=== PATIENT | male | born 1990 | race Caucasian/White ===

== ENCOUNTER 2022-06-12 20:17 | Emergency (ER) | payer BC ==
[~2022-06-12] VITALS: Ht 177.8 cm; Wt 136.4 kg
[2022-06-12 20:20] VITALS: TEMP 97.6
[2022-06-12 21:15] LABS: BASO # 0.1 K/mm3 (0.0-0.2); BASO % 0.6 % (0.0-2.0); EOS # 0.3 K/mm3 (0.0-0.7); EOS % 3.4 % (0.0-4.0); GRAN # 4.8 K/mm3 (1.4-6.5); GRAN % 56.8 % (42.2-75.2); HEMOGLOBIN 14.5 g/dl (13.5-18.0); LYMPH # 2.6 K/mm3 (1.2-3.4); MEAN CELL VOLUME 89 fl (80.0-100.0); MEAN CORPUSCULAR HEMOGLOBIN 29 pg (27-31); MEAN CORPUSCULAR HGB CONC 33 g/dl (33.0-37.0); MEAN PLATELET VOLUME 10.8 fl (7.4-10.4); MONO # 0.7 K/mm3 (0.1-0.6); PLATELET COUNT 298 K/mm3 (130-400); RED BLOOD COUNT 4.94 M/mm3 (4.20-5.60); REDCELL DISTRIBUTION WIDTH-CV 12.6 % (11.5-14.5)
[2022-06-12 21:29] LABS: ALANINE AMINOTRANSFERASE 40 U/L (0-55); ALBUMIN 4.2 gm/dL (3.5-5.0); ALKALINE PHOSPHATASE 92 U/L (40-150); ANION GAP 10 mmol/L (7-16); AST,SGOT 21 U/L (5-34); BILIRUBIN,TOTAL 0.2 mg/dL (0.2-1.2); BLOOD UREA NITROGEN 18 mg/dL (9-21); CALCIUM 9.6 mg/dL (8.4-10.2); CARBON DIOXIDE 24 mmol/L (22-29); CHLORIDE 106 mmol/L (98-107); CREATININE, serum 1.11 mg/dL (0.72-1.25); GLUCOSE 107 mg/dL (70-99); LIPASE 39 U/L (8-78); POTASSIUM 4.1 mmol/L (3.5-4.5); SODIUM 140 mmol/L (136-145); TOTAL PROTEIN 7.9 gm/dL (6.2-8.1)
[2022-06-12 21:35] LABS: TROPONIN-I < 0.010 ng/mL (0.00-0.033)
[2022-06-12] MEDS ORDERED: PROTONIX 40MG T40 MG PO (22:18)
[2022-06-12 22:33] VITALS: BP 135/83; PULSE 74
== END 2022-06-12 22:34 | disposition home or self-care (01) ==
LOC: COL.ER 20:17
PROVIDERS: Physician Assistant
DX: R07.2 Precordial pain (principal)
CPT/HCPCS: J2270; J2405

== ENCOUNTER 2023-03-31 12:07 | Day surgery (SDC) | payer BC, OTHER ==
[~2023-03-31] VITALS: Ht 180.3 cm; Wt 132.4 kg
[2023-03-31] VITALS (10 sets, daily range): BP systolic 111–131; BP diastolic 65–91; PULSE 57–93; TEMP 97.6–98.3
[~2023-03-31 12:07] MED LIST: LR 1,000 ML IV SCH; PROTONIX 40MG T40 MG PO
[2023-03-31] MEDS ORDERED: Lidocaine PF 2% (20 MG/ML) 5 ML VIAL ONE (14:38)
[2023-03-31] MEDS ORDERED: Glycopyrrolate 0.2 MG/ML 1 ML VIAL ONE (14:38)
--- NOTE | 2023-03-31 15:25 | NUR ---
The patient ambulated back to [place] [facility] and appeared to tolerate the activity well. The patient appears alert and oriented and denies any immediate pain or nausea. Vital signs obtained. Consent signed. 20G IV started on 4th attempt in his left upper forearm, LR infusing without difficulty. Assessment completed. Home medications reconcilled. at bedside. Call light is within reach. The patient did report feeling lightheaded with the IV starts and was given 2 cool washcloths to help with this. The patient's is at his bedside at this time. The patient denied wanting a warm blanket at this time. The patient denies any further needs at this time.
[2023-03-31] MEDS ORDERED: Iohexol 350 - 100 ML VIAL BILE DUCT ONE (15:53)
--- NOTE | 2023-03-31 16:20 | NUR ---
pt admitted to room from endoscopy, at bedside. pt a&ox3. reports pain in left shoulder from previous injury. med rec and admission assessment complete. pt oriented to room. no needs at this time. call light in reach.
--- NOTE | 2023-03-31 20:07 | NUR ---
report received from clarence mehta. pt resting in bed with at bedside. pt denies pain. call light in reach. all needs met at this time.
--- NOTE | 2023-03-31 22:22 | NUR ---
shift assessment complete, see documentation. pt resting in bed watching tv. pt denies pain. call light in reach. all needs met at this time.
[2023-04-01] VITALS (15 sets, daily range): BP systolic 110–131; BP diastolic 58–79; PULSE 55–83; TEMP 98.1–98.3
[2023-04-01] MEDS ORDERED: LR 1,000 ML IV SCH (05:00)
--- NOTE | 2023-04-01 05:53 | NUR ---
pt sleeping well through the night. pt vss. pt denies pain. call light in reach. all needs met at this time.
--- NOTE | 2023-04-01 07:30 | NUR ---
pt a&ox3 sitting on the side of bed. procedure and anesthesia consents are signed. pt npo for surgery this morning. pt reports pain tolerable this morning. no nausea or vomiting. no needs at this time. call light in reach.
[2023-04-01] MEDS ORDERED: Succinylcholine PF 100 MG/5 ML SYRINGE/POLY AMP IV ONE ×2 (07:38→07:52)
[2023-04-01] MEDS ORDERED: Midazolam 2 MG/2 ML VIAL ONE (07:43)
[2023-04-01] MEDS ORDERED: fentaNYL 50 MCG/ML 5 ML VIAL ONE (07:43)
[2023-04-01] MEDS ORDERED: Lidocaine PF 2% (20 MG/ML) 5 ML VIAL ONE (07:45)
[2023-04-01] MEDS ORDERED: Ondansetron 4 MG/2 ML VIAL ONE (07:45)
[2023-04-01] MEDS ORDERED: NS 20 ML IV ONE (07:45)
[2023-04-01] MEDS ORDERED: Glycopyrrolate 0.2 MG/ML 1 ML VIAL ONE (07:45)
[2023-04-01] MEDS ORDERED: Ketorolac 30 MG/ML VIAL ONE (07:45)
[2023-04-01] MEDS ORDERED: dexAMETHasone 10 MG/ML VIAL ONE (07:45)
[2023-04-01] MEDS ORDERED: Rocuronium 50 MG/5 ML Multi-Dose VIAL ONE ×2 (07:49→08:38)
--- NOTE | 2023-04-01 08:00 | NUR ---
pt off floor for surgery
[2023-04-01] MEDS ORDERED: Scopolamine 1 MG Delivered 3-Day PATCH TD ONE (08:07)
[2023-04-01] MEDS ORDERED: Iohexol 350 - 100 ML VIAL BILE DUCT ONE ×2 (08:47)
[2023-04-01] MEDS ORDERED: Ondansetron 4 MG/2 ML VIAL IV PRN ×2 (09:00→09:45)
[2023-04-01] MEDS ORDERED: HYDROmorphone 2 MG/1 ML VIAL IV PRN (09:00)
[2023-04-01] MEDS ORDERED: fentaNYL 50 MCG/ML 2 ML VIAL IV PRN (09:00)
[2023-04-01] MEDS ORDERED: hydrALAZINE 20 MG/ML 1 ML VIAL IV PRN (09:00)
[2023-04-01] MEDS ORDERED: droPERidol 2.5 MG/ML 2 ML VIAL IV PRN (09:00)
[2023-04-01] MEDS ORDERED: Meperidine 50 MG/ML 1 ML VIAL IV PRN (09:00)
[2023-04-01] MEDS ORDERED: Morphine 4 MG/ML VIAL IV PRN (09:45)
--- NOTE | 2023-04-01 10:15 | NUR ---
pt back in room from surgery, at bedside. pt a&ox3. pn is tolerable. x3 lap sites are cdi. nausea patch placed behind right ear. pt denies needs at this time. call light in reach.
--- NOTE | 2023-04-01 12:38 | NUR ---
D: Initial visit: Logistics Team Lead stopped by room on rounds. Pt was resting and content. A: Pt has no needs right now. Pt is former and orginally from [place]. Pt appreciated the visit. P: Logistics Team Lead informed pt that if he needed anything from the cam specialist area to let his nurse know. Logistics Team Lead will follow up as needed.
[2023-04-01] MEDS ORDERED: NORCO 325 MG-51 TAB PO (15:17)
--- NOTE | 2023-04-01 16:00 | NUR ---
INT discontinued. discharge instructions given to pt and , all questions answered. escorted pt to personal vehicle by wheelchair.
--- NOTE | 2023-04-01 16:21 | NUR ---
JALEEL Student identified self as JALEEL Student and completed intake with patient and Charlette at bedside. Patient lives in [place], [place] with his Charlette (ph#[phone]). Patient sees Dr. Washington for primary care and obtains medications from [facility]. Patient stated that he has not had any issues with affording medications. Patient stated that he is independent with ADLs and does not have any DME. Patient is covered by [facility] and [facility]. Patient stated that he plans on returning home at time of discharge. Discharge Plan: Home
== END 2023-04-01 16:00 | disposition home or self-care (01) ==
LOC: SDCO 12:07 → SURG 16:23 → SDCO 04-01 09:45
DX: K80.65 Calculus of gallbladder and bile duct with chronic cholecystitis with obstruction (principal); E66.9 Obesity, unspecified; Z68.41 Body mass index [BMI] 40.0-44.9, adult
CPT/HCPCS: OP; C1769; J0330; J0690; J1100; J1885; J2250; J2405; J2704; J3010; J7120; Q9967